=== PATIENT | female | born 1965 | race Caucasian/White ===

== ENCOUNTER 2022-06-11 09:09 | Day surgery (SDC) | payer BC ==
[2022-06-05 13:36] LABS: BASOPHILS # (AUTO) 0.1 X10'3 (0-0.2); BASOPHILS % (AUTO) 0.7 % (0-1); EOSINOPHILS # (AUTO) 0.2 X10'3 (0-0.9); EOSINOPHILS % (AUTO) 1.4 % (0-6); LYMPHOCYTES # (AUTO) 4.1 X10'3 (1.1-4.8); LYMPHOCYTES % (AUTO) 33.1 % (21-51); MEAN CORPUSCULAR HEMOGLOBIN 27.4 PG (27.0-31.0); MEAN CORPUSCULAR HGB CONC 32.6 g/dL (33.0-36.5); MEAN CORPUSCULAR VOLUME 84.1 FL (78-98); MEAN PLATELET VOLUME 8.8 FL (7.4-10.4); MONOCYTES # (AUTO) 1.2 X10'3 (0-0.9); MONOCYTES % (AUTO) 9.4 % (2-12); NEUTROPHILS # (AUTO) 6.8 X10'3 (1.8-7.7); NEUTROPHILS % (AUTO) 55.4 % (42-75); PRE OP HEMOGLOBIN 14.3 g/dL (12.0-16.0); PRE OP PLATELET COUNT 368 X10'3 (140-440); RED BLOOD COUNT 5.24 X10'6 (4.20-5.60); RED CELL DISTRIBUTION WIDTH 14.8 % (11.5-14.5)
[2022-06-05 13:41] LABS: CLARITY,URINE SLIGHTLY CLOUDY (Clear); COLOR,URINE STRAW (Yellow); GLUCOSE, URINE NEGATIVE (Neg); KETONES,URINE NEGATIVE (Neg); LEUKOCYTE ESTERASE ,URINE NEGATIVE (Neg); NITRITES, URINE NEGATIVE (Neg); OCCULT BLOOD,URINE NEGATIVE (Neg); PROTEIN,URINE NEGATIVE (Neg); UROBILINOGEN,URINE 0.2 E.U/dL (0.2-1.0)
[2022-06-05 13:45] LABS: UA COLLECTION TYPE CLN CATCH MIDSTREAM
[2022-06-05 13:51] LABS: SQUAMOUS EPITHELIAL CELL,UR FEW /LPF (FEW)
[2022-06-05 13:52] LABS: BACTERIA,URINE FEW /HPF (Neg); RBC,URINE 0-2 /HPF (0-2); WBC,URINE 0-4 /HPF (0-4)
[2022-06-05 14:00] LABS: ALBUMIN 4.2 G/DL (3.4-5.0); ALBUMIN/GLOBULIN RATIO 1.1 (1.1-1.5); ALKALINE PHOSPHATASE 91 IU/L (46-116); BLOOD UREA NITROGEN 20 MG/DL (7-18); BUN/CREATININE RATIO 24.4 (6.6-38.0); CALCIUM 9.3 MG/DL (8.5-10.1); CHLORIDE 99 MMOL/L (99-107); CREATININE 0.82 MG/DL (0.40-0.90); PRE OP ALT 55 U/L (30-65); PRE OP ANION GAP 8 (8-16); PRE OP AST 36 U/L (10-37); PRE OP BILIRUB, TOTAL 0.3 MG/DL (0.0-1.0); PRE OP GLUCOSE 99 MG/DL (70-104); PRE OP POTASSIUM 3.9 MMOL/L (3.4-5.1); PRE OP SODIUM 137 MMOL/L (135-145); TOTAL CARBON DIOXIDE 29.9 MMOL/L (24-32); TOTAL PROTEIN 8.2 G/DL (6.4-8.2); eGFR 72 ML/MIN
[~2022-06-11] VITALS: Ht 152.4 cm; Wt 69.9 kg
[2022-06-11] VITALS (15 sets, daily range): BP systolic 106–135; BP diastolic 63–86
[~2022-06-11 09:09] MED LIST: ASPI-1265 PO; DULO60CA65 PO; MELA5TAB12 PO; PRAS25CA7 PO; [UNRECOGNIZED DRUG - CODE] PO; [UNRECOGNIZED DRUG - OTHER]; [UNRECOGNIZED DRUG - OTHER] PO; ceFAZolin inj. 2,000 MG in dextrose 5%-water 100 ML IV ONE; famotidine 20mg tablet PO ONE; ringers solution, lacted 1,000 ML IV SCH
[2022-06-11] MEDS ORDERED: OXYB5TAB16 PO (09:49)
[2022-06-11] MEDS ORDERED: BUPIVAcaine/PF 5 mg/ml 10ml ONE (12:02)
[2022-06-11] MEDS ORDERED: sevoflurane 250ml liquid IH ONE (12:28)
[2022-06-11] MEDS ORDERED: fentaNYL/PF 50MCG/1 ML 2ML syringe ONE (12:32)
[2022-06-11] MEDS ORDERED: propofol inj 20 ML IV ONE (12:32)
[2022-06-11] MEDS ORDERED: midazolam 1 mg/ML 2ml injection ONE (12:32)
[2022-06-11] MEDS ORDERED: rocuronium 10mg/ml inj IV ONE (12:33)
[2022-06-11] MEDS ORDERED: ondansetron/PF 4mg/2ml inj ONE (13:18)
[2022-06-11] MEDS ORDERED: dexamethasone sod phosphate 4mg/ml inj. ONE (13:19)
[2022-06-11] MEDS ORDERED: neostigmine methylsulfate 1 MG/ML 10ml vial ONE (13:32)
[2022-06-11] MEDS ORDERED: glycopyrrolate 0.2mg/ml inj ONE (13:32)
--- NOTE | 2022-06-11 13:33 | NUR ---
Received from OR via [facility] , accompanied by Anesthesiologist DR COELLO and report given by Anesthesiolgist. PT PRESENTS WITH 20G KRIS HAND, 3 LAP SITES WITH RENETTA CHEN. Addendum: 06/11/22 at 1429 by Beatriz Rachel RN, RN Amended: Links added.
[2022-06-11] MEDS ORDERED: ringers solution, lacted 1,000 ML IV SCH (13:55)
[2022-06-11] MEDS ORDERED: morphine 2 MG/ML inj. syringe IV PRN (13:55)
[2022-06-11] MEDS ORDERED: ondansetron/PF 4mg/2ml inj IV PRN (13:55)
[2022-06-11] MEDS ORDERED: meperidine/PF 25mg/ml syringe IV PRN ×3 (13:55)
[2022-06-11] MEDS ORDERED: morphine 4 MG/ML inj SYRINge IV PRN (13:55)
[2022-06-11] MEDS ORDERED: proCHLORperazine 10 MG/2 ml inj IV PRN (13:55)
[2022-06-11] MEDS ORDERED: HYDROcodone/acetaminophen 10/325mg tab PO ONE (15:15)
--- NOTE | 2022-06-11 15:43 | NUR ---
ABLE TO SAFELY AMBULATE AND TRANSFER SELF. IV TAKEN OUT WITHOUT ANY COMPLICATIONS. ALL DISCHARGE INSTRUCTIONS COVERED WITH PATIENT AND ALL QUESTIONS ANSWERED. PATIENT TAKEN OUT VIA WHEELCHAIR TO PERSONAL VEHICLE WHERE FAMILY DROVE PATIENT HOME. Addendum: 06/11/22 at 1555 by Beatriz Rachel RN, RN Amended: Links added.
== END 2022-06-11 15:43 | disposition home or self-care (01) ==
LOC: PAS 09:09
PROVIDERS: ATTEND Surgery
DX: R10.2 Pelvic and perineal pain (principal); K66.0 Peritoneal adhesions (postprocedural) (postinfection); E78.5 Hyperlipidemia, unspecified; K21.9 Gastro-esophageal reflux disease without esophagitis; F41.9 Anxiety disorder, unspecified; G25.81 Restless legs syndrome; F32.A Depression, unspecified; G43.909 Migraine, unspecified, not intractable, without status migrainosus; Z86.73 Personal history of transient ischemic attack (TIA), and cerebral infarction without residual deficits; Z98.890 Other specified postprocedural states; Z90.710 Acquired absence of both cervix and uterus; Z79.82 Long term (current) use of aspirin; Z79.899 Other long term (current) drug therapy; Z88.1 Allergy status to other antibiotic agents; Z72.89 Other problems related to lifestyle; Z86.32 Personal history of gestational diabetes
CPT/HCPCS: 36415; 49329; 80053; 81001; 82948; 85025; 93005; J0690; J1100; J2175; J2250; J2405; J2704; J2710; J3010; J3490; J7030; J7060; J7120; Z7506; Z7508; Z7512; A4215; A4618; A7000